=== PATIENT | female | born 1975 | race Caucasian/White ===

== ENCOUNTER 2016-08-26 21:02 | Emergency (ER) | payer MEDICAID ==
[~2016-08-26] VITALS: Ht 152.4 cm; Wt 86.0 kg
[2016-08-26 21:12] VITALS: Ht 152.4 cm; Wt 86.0 kg
--- NOTE | 2016-08-26 22:42 | ERD ---
ER Documentation Chief Complaint Date/Time DATE: 08/26/16 TIME: 22:37 Chief Complaint Headache X3 days, blurry vision HPI 41-year-old female presents with chief complaint of headache 3 days, then increased in severity around 6 PM tonight. Associated symptoms include right- sided facial pain/numbness, nausea, photophobia, and blurry vision. States that the headache was gradual in onset, however it is the worst headache of her life. She took ibuprofen at home without relief. She denies recent trauma. Denies neck stiffness, fever, ear pain, vomiting, slurred speech, extremity weakness or numbness and vision loss. She denies history of hypertension and is a non-smoker. ROS All systems reviewed and are negative except as per history of present illness. Medications Home Meds Active Scripts Acetamin/Butalbital/Caffeine* (Fioricet*) [id number] Tab, 1 TAB PO Q6H Y for PAIN, #20 TAB Prov:Puja Chambers PA-C 08/27/16 Allergies Allergies: Coded Allergies: No Known Allergy (Unverified , 08/26/16) PMhx/Soc Medical and Surgical Hx: pt denies Medical Hx History of Surgery: Yes ([id number]) Hx Alcohol Use: No Hx Substance Use: No Hx Tobacco Use: No Smoking Status: Never smoker Physical Exam Vitals Vital Signs Date Time Temp Pulse Resp B/P Pulse Ox O2 Delivery O2 Flow Rate FiO2 08/27/16 02:00 98.4 81 20 173/84 99 Room Air 08/26/16 21:12 99.8 111 20 180/79 99 Physical Exam GENERAL: Non-toxic. No apparent signs of distress. No slurred speech. No facial asymmetry. HEENT: Atraumatic. Tenderness to palpation of frontal and maxillary sinus. bilateral eyes are PERRL EOM intact. Normal conjunctiva, no injection. No eyelid or lower eyelid swelling noted. Photophobia. Ears: Normal tympanic membrane, no erythema or bulging. No ear canal swelling. No ear discharge. Nose : no nasal discharge. Throat: Oropharynx normal. Tongue pink and moist. No tonsillar swelling or tonsillar exudates. No lymphadenopathy. LUNGS: Clear to auscultation. No accessory muscle use. No wheezing, no crackles. No signs or symptoms of respiratory distress. HEART: Regular rate and rhythm. No murmurs, clicks, rubs or gallops. BACK: No midline tenderness. EXTREMITIES: No peripheral cyanosis or edema. No focal pain or notable trauma. Full range of motion. Sensation intact. good capillary refill. NEURO: The patient moves all 4 extremities with 5/5 strength. Cranial nerves are grossly intact. Normal mental status for age. Good muscle tone. SKIN: There is no apparent rash, petechiae, erythema or swelling. Good skin turgor. Results 24 hrs Current Medications Medications (Trade) Dose Ordered Sig/Janet Route PRN Reason Start Time Stop Time Status Last Admin Dose Admin Ketorolac Tromethamine (Toradol) 30 mg ONCE STAT IV 08/26/16 23:40 08/26/16 23:45 DC 08/27/16 00:18 Metoclopramide HCl (Reglan) 10 mg ONCE ONCE IV 08/27/16 00:00 08/27/16 00:01 DC 08/27/16 00:18 Diphenhydramine HCl 50 mg 50 mg ONCE ONCE IV 08/27/16 00:00 08/27/16 00:01 DC 08/27/16 00:18 Sodium Chloride (NS) 1,000 ml @ 1,000 mls/hr Q1H ONCE IV 08/27/16 00:00 08/27/16 00:59 DC 08/27/16 00:22 Procedures/MDM Patient states that she had a headache with photophobia and nausea for 3 days, however worsening of symptoms began tonight at 6 PM. Onset has been gradual. However she states that it is the worst headache of her life, and has not been alleviated with ibuprofen or rest. Based on patient's description I ordered a head CT to rule out subarachnoid hemorrhage. On exam patient has no unilateral weakness, she has full range of motion in all extremities, no facial asymmetry, no slurred speech. She has no history of hypertension for diabetes. Is a non- smoker. Risk of CVA is low. Awaiting CT results prior to further management. POC : Negative Head CT without contrast: IMPRESSION: Empty sella otherwise unremarkable noncontrast CT scan of the brain. I explained the CT results the patient, I explained that I would proceed to give her IV medications for relief of her symptoms now that intracranial hemorrhage is been ruled out. I ordered IV 30 mg Toradol, IV 50 mg Benadryl, and IV 10 mg Reglan after confirming that the patient would not be driving home. Along with 1 L of IV fluids. We will reassess patient after treatment. Patient reported relief of Sx after migraine cocktail. This is reassuring. I prescribed her Fiorcet and suggested she follow-up with her PCP in 1-2 days. At this time I have low suspicion for ICH, space occupying lesion in the brain, cluster MOISE, giant cell arteritis, and infection. Patient stable for discharge and outpatient management. Departure Diagnosis: Primary Impression: Headache Headache type: unspecified Headache chronicity pattern: acute headache Intractability: not intractable Qualified Code: R51 - Acute nonintractable headache, unspecified headache type Additional Impression: Migraine Migraine type: without aura Status migrainosus presence: without status migrainosus Intractability: not intractable Qualified Code: G43.009 - Migraine without aura and without status migrainosus, not intractable Condition: Good Puja Chambers PA-C Aug 26, 2016 22:42
--- NOTE | 2016-08-26 23:33 | RADRPT ---
PROCEDURE: CT BRAIN WITHOUT CONTRAST CLINICAL INDICATION: 41-year-old female with headaches, nausea and dizziness. TECHNIQUE: The study was performed utilizing a [employer] VCT 64-slice CT scanner. Direct axia l sections were obtained from the foramen magnum to the vertex without the use of intravenous contra st material. Sagittal and coronal reformations were obtained. One or more the following dose reduct ion techniques were utilized: automated exposure control, adjustment of the mA and/or kV according t o patient's size or use of iterative reconstruction technique. The images were viewed on a PACS [email or web address]. CTD/vol = 43.3 mGy; Total Exam DLP = 720.2 mGy-cm. COMPARISON: None. FINDINGS: There is an empty sella. The ventricles have a normal size, shape and position. There is no eviden ce for mass effect or midline shift. There are no intracranial areas of abnormal attenuation. Ther e is no evidence for acute intra or extra-axial blood. The bony calvarium is intact. The partially v isualized paranasal sinuses and mastoid air cells are without significant abnormal soft tissue. IMPRESSION: Empty sella otherwise unremarkable noncontrast CT scan of the brain. .Edy Blount MD, MD Date Time Electronically viewed and signed by .Edy Blount MD, on 08/26/2016 23:33 .Danielle/
[2016-08-26] MEDS ORDERED: KETOROLAC 30 MG INJ IV STA (23:40)
[2016-08-27] MEDS ORDERED: DIPHENHYDRAMINE 50 MG INJ IV ONE
[2016-08-27] MEDS ORDERED: METOCLOPRAMIDE 10 MG INJ IV ONE
[2016-08-27] MEDS ORDERED: SOD CHLORIDE 0.9% 1,000 ML IV ONE
[2016-08-27] MEDS ORDERED: FIORICET PO (01:13)
[2016-08-27 02:00] VITALS: BP 173/84; PULSE 81; RESP 20; TEMP 98.4
== END 2016-08-27 02:00 | disposition home or self-care (01) ==
LOC: FTE 21:02
DX: R51 Headache (principal); R20.0 Anesthesia of skin; R11.0 Nausea; H53.149 Visual discomfort, unspecified; H53.8 Other visual disturbances
CPT/HCPCS: 70450; 96374; 96375; J1200; J1885; J2765; J7030; Z7502

== ENCOUNTER 2017-12-17 21:34 | Emergency (ER) | END 2017-12-18 01:43 | disposition home or self-care (01) ==